=== PATIENT | female | born 1980 | race African-American/Black ===

== ENCOUNTER 2016-08-14 02:41 | Inpatient (IN) | payer OTHER ==
[~2016-08-14] VITALS: Ht 160 cm; Wt 120.7 kg
[~2016-08-14 02:41] MED LIST: LISINOPRIL10 M1 PO
--- NOTE | 2016-08-14 11:23 | Admission Core Measures ---
Admission Lab Results I reviewed the following labs: Laboratory Tests 08/14 0845 Urines Urine Test NEGATIVE Admission Meds I reviewed the following Meds: Current Medications Sig/Phil Start time Last Medication Dose Stop Time Status Admin Cefazolin Sodium 2,000 MG ONCE 08/14 0000 NR (Kefzol-Ancef Inj) 08/14 2358 Dexamethasone 10 MG ONCE 08/14 0000 NR (Decadron) 08/14 2358 Heparin Sodium 5,000 UNIT ONCE 08/14 0000 NR (Porcine) 08/14 2358 Acute Coronary Syndrome Inclusion Criteria ACS Diagnosis No Inpatient Core Measures LDL Reminder: If No, please order W/I first 24hr of stay Congestive Heart Failure Inclusion Criteria CHF Diagnosis No Cerebrovascular accident Inclusion Criteria CVA/TIA Diagnosis No Inpatient Core Measures Bedside Swallow Eval Reminder: If BSE failed, place ST order Antithrombotic Reminder: Order Antithrombotic Medication by end of day 2 Antithrombotic Reminder: Document Reason Antithrombotic Not ordered by end of day 2 AFIB/Flutter Reminder: If Present, add to problem list AFIB/Flutter Reminder: Order Anticoag Medication for pts with AFIB/Flutter Atherosclerosis Reminder: If Present, add to problem list LDL Reminder: If No, please order W/I first 24hr of stay PT Order Reminder: If No, please order Venous thromboembolism Inpatient Core Measures VTE Risk Factors: Obesity, Surgery [facility] prophylaxis d/t No contraindications No VTE Pharm Prophylaxis d/t No contraindications Inclusion Criteria - Per Current guidelines, there needs to be overlap - treatment for the first 5 days of Warfarin therapy. - Parenteral Anticoagulation (IV or SC) needs to be - given along with Warfarin therapy. VTE Diagnosis No VTE Type NONE VTE Confirmed by (Test) NONE Problem List As ranked by this Provider includes Assessment & Plan 1. S/P laparoscopic sleeve gastrectomy HOME MEDS Home Med List Lisinopril 10 MG TABLET 1 TAB PO DAILY HTN (Reported)
--- NOTE | 2016-08-14 12:00 | Operative Report ---
Operative/Inv Procedure Report Surgery Date: 08/14/16 Name of Procedure: Laparoscopic vertical sleeve gastrectomy Pre-Operative Diagnosis: Morbid obesity BMI of 47 Post-Operative Diagnosis: Same Estimated Blood Loss: less than 50ml Surgeon/Crtts: YOSELIN EDMONDS,SHIN Mcgrath PAC Anesthesia: general endotracheal tube, block IV Fluids: Lactated Ringer's Implants: None Urine Output: No Moore Drains: None Specimens: Portion the stomach Complications: None Condition: Stable Operative Indication: See admitting H&P Operative/Procedure Note Note: After informed consent and proper identification the patient was taken the operating room and placed on the operating room table in the supine position. Venodyne stockings were applied. She underwent an endotracheal anesthetic. She underwent a Lakesha block by anesthesia. The abdomen was then prepped and draped in normal sterile fashion. We began the case by inserting a completely and 12 mm Visiport in the left upper quadrant with a 0 Stortz laparoscope dissecting through the muscle layers into the abdominal cavity without difficulty and insufflating the abdomen with 14 mm of CO2 pressure. Next we inspected the abdomen and inserted additional trochars 25 mm trochars in each of the subcostal margins a Janet liver retractor in the upper midline to retract the left lobe of the liver and a 15 mm coguardian trocar in the right midabdomen we then began dissecting the vascular attachments along the greater curvature of the stomach using an ultrasonic scalpel taking down the vascular attachments 6 cm from the pylorus opposite the angularis all the way up to the angle his and reflecting the fundus of the stomach medially. The retrogastric space was clear we could easily identify the pancreas and spleen and splenic vessels. We had anesthesia decompress the stomach with an orogastric tube and then remove it and place a 40 Amharic bougie using the bougie as a guide we stapled creating the sleeve using an Endo SAMINA stapler firing 2 black load cartridges with seam guard followed by 2 purple load cartridges with seam guard. We placed hemoclips at the end of the staple line then divided the last several shar. We removed a Janet liver retractor we removed the bougie remove the remnant stomach in a 15 Endo Catch bag all sponge and instrument counts were correct there is no active bleeding we then removed all trochars we closed the 15 mm trocar site without direct closure device we closed all the skin incisions with 4-0 Vicryl subcuticular stitches. Steri-Strips and dry sterile dressings were placed. The patient tolerated the procedure without complications and was taken the recovery room in stable condition Findings: Smooth liver no evidence a hiatal hernia Discharge Disposition: PACU
[2016-08-14] MEDS ORDERED: PROTONIX40 M3 PO (14:15)
[2016-08-14] MEDS ORDERED: HYCET 7.5 MG-3473 ML PO (14:16)
--- NOTE | 2016-08-14 14:25 | Patient Discharge Instructions ---
Discharge Instructions General Discharge Information You were seen/treated for: Morbid obesity You had these procedures: Laparoscopic sleeve gastrectomy Watch for these problems: Significantly increased pain, nausea, or temperatures over 101 Increased redness or drainage from around the incisions Chest pain or difficulty breathing No bath, but you may shower: Yes Other wound care: When you get home remove her dressings leaving white strips intact. Shower normally and pat dry No bath Special Instructions: See preprinted information booklet Ambulate frequently May use Gas-X for gas pain Diet Recommended Diet: Bariatric Activity Activity Self Limited: Yes Pounds, do NOT lift more than: 10 Other activity limits: Do not drive or operate heavy machinery until okay with your surgeon and off all pain medications Acute Coronary Syndrome Inclusion Criteria At DC or during hospital stay patient has or had the following: ACS DIAGNOSIS No Discharge Core Measures Meds if any: Prescribed or Continued at Discharge Meds if any: NOT Prescribed or Continued at Discharge Congestive Heart Failure Inclusion Criteria At DC or during hospital stay patient has or had the following: CHF DIAGNOSIS No Discharge Core Measures Meds if any: Prescribed or Continued at Discharge Meds if any: NOT Prescribed or Continued at Discharge Cerebrovascular accident Inclusion Criteria At DC or during hospital stay patient has or had the following: CVA/TIA Diagnosis No Discharge Core Measures Meds if any: Prescribed or Continued at Discharge Meds if any: NOT Prescribed or Continued at Discharge Venous thromboembolism Inclusion Criteria VTE Diagnosis No VTE Type NONE VTE Confirmed by (Test) NONE Discharge Core Measures - Per Current guidelines, there needs to be overlap - treatment for the first 5 days of Warfarin therapy. - If discharged on Warfarin prior to 5 days of - overlap therapy, the patient will need to be - assessed for post discharge needs including - *Post discharge parental anticoagulation - *Warfarin and/or parental anticoagulation education - *Follow up date to check INR post discharge At least 5 days overlap therapy as Inpatient No Meds if any: Prescribed or Continued at Discharge Note: Overlap Therapy is Warfarin and Anticoagulant Meds if any: NOT Prescribed or Continued at Discharge
--- NOTE | 2016-08-14 14:26 | Surg Short-stay <48hrs Dis Sum ---
See Addendum Visit Information Visit Dates Admission Date: 08/14/16 Discharge Date: 08/16/16 Surgical Short Stay DC Summary Admission Diagnosis: Morbid obesity Final Diagnosis: Same Procedure(s): Laparoscopic sleeve gastrectomy Summary/Significant Findings: The patient's melena 08/14/2016. Later that day she was brought to the operating theater where she underwent a laparoscopic sleeve gastrectomy. Postoperatively patient progressed as expected, her pain was under adequate control, and she tolerated a stage I diet without nausea. The patient was discharged with an uneventful hospital course. Condition at Discharge: Stable Discharge Disposition: home or self care Discharge instructions provided to patient/family: Yes Post discharge follow-up plan: Call the office to be seen in one week
--- NOTE | 2016-08-14 14:37 | PN- Bariatrics ---
Subjective Subjective: The patient was seen this afternoon postoperatively. She was complaining of epigastric pain earlier but is currently comfortable with current pain regiment. She also got nauseous when trying to roll over in bed for which she has Zofran and is responding well. She has no other complaints the current time denies any chest pain or difficulty breathing. Objective Vital Signs and I&Os Vital signs: Blood pressure 124/60, pulse 90 temperature 98.7, O2 saturation 99% on room air I's and O's: 1200 ML's in of lactated Ringer's/ patient hasn't voided postoperatively/EBL less than 50 ML Physical Exam: Gen.: Sleepy but easily arousable and in no obvious distress Skin: Warm and dry Cardiac: S1 and S2 regular Pulmonary: Bilateral breath sounds are equal and decreased at bases Abdomen: Soft, obese, appropriate incisional tenderness, bowel sounds sluggish. Port sites are clean, dry, and intact. Extremities: Bilateral lower extremities are warm without calf tenderness or significant edema. Assessment/Plan Assessment/Plan Assessment: 36-year-old female status post lap scopic sleeve gastrectomy. Postoperative the patient is progressing as expected and her pain is under adequate control. Plan: Stage I bariatric diet until midnight then nothing by mouth for an upper GI in the morning Continue current pain regiment PRN antiemetics Out of bed and ambulate GI and DVT prophylaxis Strict I's and O's Monitor for postoperative void Incentive spirometry 2 doses of postoperative prophylactic antibiotics Core Measures/Miscellaneous Venous Thromboembolism VTE Risk Factors: Obesity, Surgery VTE Contraindications: No Contraindications VTE Diagnosis: No VTE Type: NONE VTE Confirmed by (Test): NONE Beta Cuauhtemoc Is Beta Cuauhtemoc a Home Med? No Antibiotics Is Patient on Antibiotics? Yes If Yes: prophylaxis
[2016-08-14 19:06] VITALS: BP 124/70
--- NOTE | 2016-08-14 20:03 | NUR ---
PT VOMITING AFTER DRINKING PROTEIN DRINK. RECEIVED ZOFRAN 1 HR PRIOR. SURGICAL PA BHAKTI HEATH NOTIFIED. PER PA, HAVE PT SLOW DOWN ON DRINK AND MONITOR.
[2016-08-14 22:04] VITALS: BP 132/77
[2016-08-15 01:42] VITALS: BP 130/78
[2016-08-15 06:16] VITALS: BP 134/76
--- NOTE | 2016-08-15 07:36 | PN- Bariatrics ---
Subjective Subjective: Reports ongoing nausea, which improves briefly after zofran. Reluctant to walk, as movement made her nausea worse yesterday. Currently npo awaiting upper gi study. Voiding well. No shortness of breath. No chest pains. Not passing flatus yet. Objective Vital Signs and I&Os Vital Signs Date Time Temp Pulse Resp B/P B/P Pulse O2 O2 Flow FiO2 Mean Ox Delivery Rate 08/15 0616 98.4 93 20 134/76 96 Room Air 08/15 0142 98.7 94 22 130/78 95 Room Air 08/14 2204 98.0 93 18 132/77 95 Room Air 08/14 1906 98.1 92 18 124/70 97 Room Air Room Air 08/14 1844 Room Air Room Air Intake & Output 08/15 0808/15 0000 08/14 1600 08/14 0800 08/14 0000 08/13 1600 Intake Total 1000 375 Output Total 2300 550 Balance -1300 -175 Intake, IV 1000 375 Output, 100 Emesis Output, Urine 2300 450 Patient 266 lb Weight Weight Reported by Patient Measurement Method Physical Exam: General - alert & oriented x 3. comfortable. no acute distress. Lungs - clear bilaterally. no w/r/r. Cardiac - s1s2. reg. Abdomen - soft. dressings c/d/i. no drains. expected peg-incisional tenderness. Extremities - warm bilaterally. no c/c/e. calves soft and nontender b/l. Current Medications: Current Medications Sig/Phil Start time Last Medication Dose Route Stop Time Status Admin Acetaminophen 1,000 MG .STK-MED ONE 08/14 0843 DC IV 08/14 0944 Acetaminophen/ 15 ML Q6P PRN 08/14 1815 AC Hydrocodone Bitart PO Bisacodyl 10 MG DAILY PRN 08/15 0730 UNVr TX Cefazolin Sodium 1,000 MG Q8H 08/14 2000 DC 08/15 IV 08/15 0401 0521 Cefazolin Sodium 1,000 MG IQ8 08/14 1600 CAN IV 08/15 0001 Cefazolin Sodium 2,000 MG ONCE 08/14 0000 DC IV 08/14 2359 Dexamethasone 8 MG ONCE ONE 08/15 0730 UNVr IV PUSH 08/15 0731 Dexamethasone 10 MG ONCE 08/14 0000 DC IV 08/14 2359 Fentanyl Citrate 250 MCG .STK-MED ONE 08/14 0943 DC IM 08/14 0944 Heparin Sodium 5,000 UNIT Q8 08/14 1400 AC 08/15 (Porcine) SC 05 Heparin Sodium 0 .STK-MED ONE 08/14 0926 DC (Porcine) .ROUTE Heparin Sodium 5,000 UNIT ONCE 08/14 0000 DC (Porcine) SC 08/14 2359 Hydromorphone HCl 1 MG Q4P PRN 08/14 1815 AC 08/14 IV 1831 Hydromorphone HCl 2 MG .STK-MED ONE 08/14 0942 DC IM 08/14 0943 Hyoscyamine 0.125 MG Q4 08/14 1400 AC 08/15 SL 0521 Ketorolac 30 MG Q6 08/15 1200 UNVr Tromethamine IV Ketorolac 30 MG Q8P PRN 08/14 1815 DC Tromethamine IV 08/17 1814 Midazolam HCl 4 MG .STK-MED ONE 08/14 0943 DC IM 08/14 0944 Ondansetron HCl 4 MG Q6P PRN 08/14 1815 AC 08/15 IV 0049 Pantoprazole Sodium 40 MG DAILY 08/15 1000 AC IV Potassium Chloride 20 MEQ .Q8H 08/14 1815 CAN Dextrose/Sodium 1,000 ML IV Chloride Potassium Chloride 20 MEQ Q8H 08/14 1815 r 08/15 Dextrose/Sodium 1,000 ML IV 0052 Chloride Simethicone 40 MG Q6P PRN 08/14 1815 AC PO Trimethobenzamide HCl 200 MG 4 TIMES/DAY PRN 08/15 0730 UNVr IM Results Last 48 Hours of Labs: Laboratory Tests 08/15 08/14 0619 0845 Chemistry Sodium Pending Potassium Pending Chloride Pending Carbon Dioxide Pending Anion Gap Pending BUN Pending Creatinine Pending BUN/Creatinine Ratio Pending Hematology CBC w Diff Pending WBC Pending RBC Pending Hgb Pending Hct Pending MCV Pending MCH Pending RDW Pending Plt Count Pending MPV Pending PUBS MCHC Pending Urines Urine Test NEGATIVE Assessment/Plan Assessment/Plan This 36-year-old female with hx morbid obesity (bmi 47), htn, is POD#1 s/p lap sleeve gastrectomy currently npo awaiting upper gi study decrease iv fluid rate to 75 mls/hr try decadron 8 mg iv once for ongoing nausea add tigan to stagger with zofran toradol iv q6 scheduled encouraged oob/ambulation hep sc - dvt ppx protonix iv - gi ppx IS teaching f/u upper gi study and labs hold lisinopril (home med). monitor blood pressure peg-operative antibiotics complete will d/w Core Measures/Miscellaneous Venous Thromboembolism VTE Risk Factors: Obesity, Surgery VTE Contraindications: No Contraindications VTE Diagnosis: No VTE Type: NONE VTE Confirmed by (Test): NONE Beta Cuauhtemoc Is Beta Cuauhtemoc a Home Med? No Antibiotics Is Patient on Antibiotics? Yes If Yes: prophylaxis
[2016-08-15 08:07] LABS: ABSOLUTE BASOPHIL COUNT 0 /CUMM (0.0-0.2); ABSOLUTE EOSINOPHIL COUNT 0 /CUMM (0.0-0.7); ABSOLUTE GRANULOCYTE CT 10.7 /CUMM (1.4-6.5); ABSOLUTE LYMPH COUNT 0.9 /CUMM (1.2-3.4); ABSOLUTE MONOCYTE COUNT 0.4 /CUMM (0.10-0.60); BASOPHIL % 0 % (0.0-2.0); EOSINOPHIL % 0 % (0-5); HEMATOCRIT 37.6 % (37-47); MEAN CORPUSCULAR HGB 25.4 PG (27.0-31.0); MEAN CORPUSCULAR HGB CONC 32.3 G/DL (33.0-37.0); MEAN CORPUSCULAR VOLUME 78.6 FL (81.0-99.0); MEAN PLATELET VOLUME 8.9 FL (7.4-10.4); PLATELET COUNT 264 /CUMM (130-400); RBC DISTRIBUTION WIDTH 16.7 % (11.5-14.5); RED BLOOD CELL CT 4.79 /CUMM (4.20-5.40)
[2016-08-15 08:24] LABS: GRANULOCYTE % 88.8 % (42.2-75.2)
--- NOTE | 2016-08-15 09:24 | RADIOLOGY REPORT ---
EXAMINATION: FLUOROSCOPY UPPER GI WITH GASTROGRAFIN and KUB CLINICAL INFORMATION: 1 day status post gastric sleeve procedure. Postoperative evaluation. COMPARISON: None. TECHNIQUE: A preliminary lumber material handler view of the abdomen was performed followed by a limited Gastrografin upper GI study using 30 ml of Gastroview with the patient in the semiupright position. 4 spot films and 3 cine loop series were acquired. FINDINGS: The preliminary lumber material handler view of the abdomen demonstrates a drain in the epigastric region. Mild gaseous distention of bowel loops is seen without abnormal bowel distention seen. Esophageal distensibility and motility is normal. The GE junction is located below the level of the diaphragm and is patulous. No GE reflux seen. The remnant stomach is unremarkable with no evidence of contrast leak seen. There is prompt emptying of contrast into the duodenum. Duodenal bulb and C-sweep are unremarkable in appearance. FLUOROSCOPY TIME: 11 seconds. IMPRESSION: Unremarkable postoperative examination with no evidence of contrast leak or gastric outlet obstruction.
--- NOTE | 2016-08-15 13:12 | NUR ---
Visited with pt this morning. Pt offered post-op diet handout and took another copy of it (received during nutrition visits). Pt denies questions at this time, encouraged to call if she has any questions.
== END 2016-08-15 19:30 | DRG 403 ==
LOC: SDA 02:41 → ENRESERV 16:26 → 2NB 17:56
PROVIDERS: Physician Assistant Surgical; ADMIT Surgery
PROC: 0DB64Z3 Excision of Stomach, Percutaneous Endoscopic Approach, Vertical (ICD-10-PCS; principal; 2016-08-14)
PROC: 3E0T3CZ (ICD-10-PCS; 2016-08-14)
DX: E66.01 Morbid (severe) obesity due to excess calories (principal); Z68.42 Body mass index [BMI] 45.0-49.9, adult; I10 Essential (primary) hypertension
CPT/HCPCS: 2NBP; 36415; 74240; 81025; 82436; 88307; J0131; J0690; J1100; J1644; J1885; J2405; J3250; J7042; S5012